=== PATIENT | female | born 1950 | race Caucasian/White ===

== ENCOUNTER 2020-07-10 10:53 | Outpatient (CLI) | payer MEDICARE, OTHER, SELFPAY ==
--- NOTE | ~2020-07-10 | XR_ITS ---
XR sacrum coccyx min 2V DATE: 07/10/2020 11:20 INDICATION: Fall one week ago. Tailbone pain. TECHNIQUE: AP, angled AP and lateral views of sacrum and coccyx COMPARISON: None FINDINGS: Diffuse osteopenia. No sacral or coccygeal fracture is evident. Normal alignment at the sac roiliac joints. Pessary device is noted. Osteitis pubis. IMPRESSION: Osteopenia; no sacral or coccygeal fracture is detected Reviewed, dictated and finalized at location A. N CONDUCTOR
--- NOTE | ~2020-07-10 | XR_ITS ---
XR hip RT min 2V DATE: 07/10/2020 11:20 INDICATION: Fall one week ago. Right hip and tailbone pain. TECHNIQUE: AP and lateral views of right hip COMPARISON: 03/02/2020 right hip FINDINGS: 3 pins are again noted in the proximal right femur. No recent fracture or dislocation or bone destruction of the right hip. No hip dislocation. Osteopenia. IMPRESSION: Postoperative change of right proximal femur; no recent fracture or dislocation Reviewed, dictated and finalized at location A. ENTIALS SPECIALIST
== END 2020-07-10 10:54 | disposition home or self-care (01) ==
LOC: CHSIMG 10:57
PROVIDERS: PCP Nurse Practitioner Family; Visit Provider Nurse Practitioner Family
DX: M54.9 Dorsalgia, unspecified (principal); M25.551 Pain in right hip
CPT/HCPCS: 72220; 73502

== ENCOUNTER 2021-08-07 09:38 | Outpatient (CLI) | payer MEDICARE, OTHER, SELFPAY ==
--- NOTE | 2021-08-07 10:48 | ECG_ITS ---
Measurements Intervals Ferdinand Rate: 74 P: 28 VT: 171 QRS: -23 QRSD: 88 T: 36 QT: 355 QTc: 396 Interpretive Statements SINUS RHYTHM WITH OCCASIONAL ECTOPIC PREMATURE COMPLEXES LEFTWARD AXIS LOW QRS VOLTAGE IN PRECORDIAL LEADS PATTERN CONSISTENT WITH PULMONARY DISEASE NONSPECIFIC T-WAVE ABNORMALITY Electronically Signed On 08-07-2021 12:28:51 MACHINE SETTER SUPERVISOR by Palomo Cano M.D.
[2021-08-07 11:10] LABS: Basophils Absolute Auto 0.1 K/mm3 (0.0-0.1); Basophils Percent Auto 0.8 % (0.2-1.2); Eosinophils Absolute Auto 0.2 K/mm3 (0-0.3); Hematocrit 50.1 % (37.0-47.0); Immature Granulocyte Absolute 0.01 K/mm3 (0.00-0.031); Immature Granulocyte Percent A 0.2 % (0-0.5); Lymphocytes Percent Auto 34.5 % (18.3-44.2); Mean Corpuscular HGB Conc 31.9 g/dl (32-36); Mean Corpuscular Hemoglobin 31.3 pg (26-34); Mean Corpuscular Volume 97.9 fl (80-100); Mean Platelet Volume 10.7 fl (7.4-10.4); Monocytes Absolute Auto 0.5 K/mm3 (0.1-0.6); Monocytes Percent Auto 7.8 % (2.6-8.5); Neutrophils Absolute Auto 3.6 K/mm3 (1.3-6.7); Neutrophils Percent Auto 53.7 % (45.5-73.1); Platelet Count Result 238 k/mm3 (150-375); Red Blood Count 5.12 M/mm3 (4.2-5.4); White Blood Count 6.7 K/mm3 (4.5-10.0)
[2021-08-07 11:18] LABS: Partial Thromboplastin Time 28.1 SECONDS (22.3-36.8); Prothrombin Time 12.8 Seconds (11.1-14.7)
[2021-08-07 11:20] LABS: Alanine Aminotransferase 59 U/L (4-35); Albumin Level 5.1 g/dL (3.5-5.1); Alkaline Phosphatase 56 U/L (38-126); Anion Gap 9 mmol/L (8-16); Aspartate Amino Transferase 48 U/L (14-36); Bilirubin,Total 0.9 mg/dL (0.2-1.3); Blood Urea Nitrogen 15 mg/dL (7-17); Calcium 9.4 mg/dL (8.4-10.2); Carbon Dioxide 27 mmol/L (22-30); Chloride 104 mmol/L (98-107); Estimated Glomerular Filt Rate > 60; Glucose 102 mg/dL (65-110); Potassium 4.2 mmol/L (3.4-5.0); Sodium 140 mmol/L (137-145)
== END 2021-08-07 09:39 | disposition home or self-care (01) ==
LOC: ANHSURGERY 09:45
PROVIDERS: PCP Nurse Practitioner Family; Visit Provider Urology
DX: N81.4 Uterovaginal prolapse, unspecified (principal); I10 Essential (primary) hypertension; Z01.818 Encounter for other preprocedural examination; R94.31 Abnormal electrocardiogram [ECG] [EKG]
CPT/HCPCS: 36415; 80053; 85025; 85610; 85730; 86850; 86900; 86901; 87086; 93005

== ENCOUNTER → 2021-08-17 02:49 | Outpatient (CLI) | payer MEDICARE, OTHER, SELFPAY ==
[2021-08-17 12:15] LABS: SARS-CoV-2 RNA PCR Negative
== END ==
PROVIDERS: PCP Nurse Practitioner Family; Visit Provider Urology
DX: Z01.812 Encounter for preprocedural laboratory examination (principal); Z20.822 Contact with and (suspected) exposure to COVID-19
CPT/HCPCS: C9803; U0003; U0005

== ENCOUNTER 2021-08-20 00:09 | Day surgery (SDC) | payer MEDICARE, SELFPAY ==
--- NOTE | 2021-08-07 10:06 | PC.NURSE ---
Report to the Outpatient Waiting Room, entrance under the green pavilion located off [facility], at time _0600_ on date _08/20/21_. OR Time: _0730_. - You and your visitor will be asked a series of questions to screen for COVID 19 for your protection. - A mask is required within the hospital. One visitor will be allowed to accompany the patient into the hospital. Patients visitor will be instructed to remain with patient at all times or leave the building. We will allow the visitor to come back to the postoperative area when patient is ready. Preoperative COVID Testing Requirements: COVID TEST SCHEDULED FOR 08/17/21 @ 0930 COVID test must be conducted within 72 hours of surgery and patient is asked to isolate self from time of testing until procedure. You will go to the [facility] Testing Site for your COVID testing. The [facility] Testing site is located at the corner of [address] [facility]. You will only be called if COVID results are positive and your surgeon may reschedule your elective surgery date. Patients may have clear liquids (water, carbonated beverages, clear teas, apple juice) until 3 hours prior to surgery (0430 AM) with a maximum of 20 ounces. Take the following medications with a SIP of water the morning of surgery: _LORAZEPAM IF NEEDED__ Medications to discontinue per physician __NONE__ Please no make-up, nail ethiopian, hairspray, perfume, deodorant, or body powder the day of surgery. No jewelry (including any body piercings) or valuables the day of surgery, leave them at home. Please take a shower or bath the night before, or the morning of, surgery with an antibacterial soap. Wear comfortable, loose fitting clothing. - Jewelry must be removed prior to entering the operating room. Rings and piercings that are not removed may be cut off. - The hospital will not accept responsibility for valuables. - Please leave all valuables, including medications, at home the day of surgery. If you are going home after surgery, a licensed powder truck driver must drive you home. - NO public transportation without another adult. - We recommend that an adult stay with you for 24 hours following discharge. - We also recommend that you do not drive, make important decision, drink alcoholic beverages, or take any drugs that were not prescribed by your health care provider for at least 24 hours after your discharge time. Follow any additional instructions given to you from your surgeon. Instructions given to ___PT and asked if any additional questions and then verbalized understanding. Patient advised to call surgeon office or pre surgery nurse liaCHYNA forbes [phone] if any additional questions.
[2021-08-07 10:25] VITALS: BP 172/96; PULSE 68; RESP 18; TEMP 37.1; O2SAT 94; BMI 35.2
--- NOTE | 2021-08-07 10:30 | PC.NURSE ---
Report to the Outpatient Waiting Room, entrance under the green pavilion located off [facility], at time _0600_ on date _08/20/21_. OR Time: _0730__. - You and your visitor will be asked a series of questions to screen for COVID 19 for your protection. - A mask is required within the hospital. One visitor will be allowed to accompany the patient into the hospital. Patients visitor will be instructed to remain with patient at all times or leave the building. We will allow the visitor to come back to the postoperative area when patient is ready. Preoperative COVID Testing Requirements: COVID TEST SCHEDULED FOR 08/17/21 @ 0930 COVID test must be conducted within 72 hours of surgery and patient is asked to isolate self from time of testing until procedure. You will go to the [facility] Testing Site for your COVID testing. The [facility] Testing site is located at the corner of [address] [facility]. You will only be called if COVID results are positive and your surgeon may reschedule your elective surgery date. Patients may have clear liquids (water, carbonated beverages, clear teas, apple juice) until 3 hours prior to surgery (0430 AM) with a maximum of 20 ounces. - No food from midnight until time of surgery Take the following medications with a SIP of water the morning of surgery: __LORAZEPAM IF NEEDED__ Medications to discontinue per physician __NONE_ Please no make-up, nail frisian, hairspray, perfume, deodorant, or body powder the day of surgery. No jewelry (including any body piercings) or valuables the day of surgery, leave them at home. Please take a shower or bath the night before, or the morning of, surgery with an antibacterial soap. Wear comfortable, loose fitting clothing. - Jewelry must be removed prior to entering the operating room. Rings and piercings that are not removed may be cut off. - The hospital will not accept responsibility for valuables. - Please leave all valuables, including medications, at home the day of surgery. If you are going home after surgery, a licensed hazmat cdl a driver must drive you home. - NO public transportation without another adult. - We recommend that an adult stay with you for 24 hours following discharge. - We also recommend that you do not drive, make important decision, drink alcoholic beverages, or take any drugs that were not prescribed by your health care provider for at least 24 hours after your discharge time. Follow any additional instructions given to you from your surgeon. Instructions given to and asked if any additional questions and then verbalized understanding. Patient advised to call surgeon office or pre surgery nurse liaCHYNA forbes [phone] if any additional questions.
--- NOTE | 2021-08-12 17:12 | PM.IMHP ---
H&P: HPI History of Present Illness Date/Time: 08/12/21 17:12 Uterine prolpase/JASBIR Chief Complaint: POP/JASBIR Review of Systems Review of Systems: All systems reviewed & are unremarkable except as noted in HPI and below PMFSH Family History Family History Mother Family history of diabetes mellitus in first degree relative Grandparent Diabetes mellitus Social History Social History Smoking status: Never smoker Second hand tobacco smoke exposure: No Alcohol intake: never Substance use: never Substance use type: does not use Spiritual care concerns: No Meds Home Medications and Allergies Home Medications Medication Instructions Recorded Confirmed Type lorazepam 0.5 mg tablet 0.5 mg PO DAILY PRN #20 tablet 07/10/20 08/07/21 Rx lisinopril 10 mg PO QAM 08/07/21 08/07/21 History Allergies Allergy/AdvReac Type Severity Reaction Status Date / Time escitalopram Allergy Severe Confusion Verified 08/07/21 10:23 lidocaine Allergy Intermediate Agitated Verified 08/07/21 10:23 epinephrine Allergy Unknown Agitated Verified 08/07/21 10:23 Exam Narrative: apex at +6 urethral mobility Assessment and Plan Assessment and plan (1) Uterine prolapse: Code(s): N81.4 - Uterovaginal prolapse, unspecified Status: Acute Assessment and Plan: robotic colpopexy (2) JASBIR (stress urinary incontinence, female): Code(s): N39.3 - Stress incontinence (female) (male) Status: Acute Assessment and Plan: urethral sling
--- NOTE | 2021-08-17 07:26 | P.HP_ITS ---
H&P: HPI History of Present Illness Date/Time: 08/17/21 07:26 71-year-old admitted for robotic supracervical hysterectomy bilateral salpingo- oophorectomy secondary to uterine prolapse. Attempted to removed for pessary in the office however she could not tolerate that and thus I do not have a Pap smear result. She is however low risk and has never had an abnormal and is not sexually active. Risks and benefits of the procedure reviewed in full detail Chief Complaint: uterine prolapse Review of Systems Review of Systems: All systems reviewed & are unremarkable except as noted in HPI and below PMFSH Family History Family History Mother Family history of diabetes mellitus in first degree relative Grandparent Diabetes mellitus Social History Social History Smoking status: Never smoker Second hand tobacco smoke exposure: No Alcohol intake: never Substance use: never Substance use type: does not use Spiritual care concerns: No Meds Home Medications and Allergies Home Medications Medication Instructions Recorded Confirmed Type lorazepam 0.5 mg tablet 0.5 mg PO DAILY PRN #20 tablet 07/10/20 08/07/21 Rx lisinopril 10 mg PO QAM 08/07/21 08/07/21 History Allergies Allergy/AdvReac Type Severity Reaction Status Date / Time escitalopram Allergy Severe Confusion Verified 08/07/21 10:23 lidocaine Allergy Intermediate Agitated Verified 08/07/21 10:23 epinephrine Allergy Unknown Agitated Verified 08/07/21 10:23 Exam Const: General: no acute distress Eyes: General: appearance normal, both eyes and all related structures Neck: Neck: supple and no JVD Thyroid: thyroid normal Resp: Effort & Inspection: normal respiratory effort Auscultation: clear to auscultation bilaterally Cardio: Rate: regular rate Rhythm: regular rhythm GI: Inspection: non-distended GI Palp: Yes Soft to palpation, No Tenderness to palpation present (GI) and No Guarding due to palpation present (GI) Auscultation: normal bowel sounds : External Female Exam: normal external appearance Speculum Exam - Cervix: normal appearance of the cervix ( unable to perform Pap smear and pelvic exam secondary to pessary present) Skin: General skin exam: no rashes or lesions noted Extrem: General: normal to inspection and no edema Psych: Mental Status: mental status grossly normal Affect: normal affect Assessment and Plan Additional Plan impression: Uterine prolapse Plan: Robotic supracervical hysterectomy and bilateral salpingo-oophorectomy. Dr. Fish will proceed with robotic sacral colpopexy
[2021-08-20] VITALS (11 sets, daily range): BP systolic 98–169; BP diastolic 48–95; PULSE 60–77; RESP 12–20; TEMP 36.2–37; O2SAT 94–99; BMI 35.2
--- NOTE | 2021-08-20 07:04 | P.PNAN_ITS ---
Anes - Initial Pre Proc Eval Procedure: Operation Date: 08/20/21 07:30 Proposed Procedures p Robotic Sacrocolpopexy - Vinod Fish MD s Urethral Sling - Vinod Fish MD s Robotic Assisted Supracervical Hysterectomy, Bilateral Salpingo-oophorectomy - Zach Moreland MD Date/Time: 08/20/21 07:04 Surgeon: Vinod Fish MD Pre Op Diagnosis: complete uterine proplapse, stress incontinence Patient Data Age: 71 Gender: F Height: 1.73 m Weight: 105.2 kg Last Vital Signs Temp 37.1 C 08/07/21 10:25 Pulse 68 08/07/21 10:25 Resp 18 08/07/21 10:25 BP 172/96 H 08/07/21 10:25 Pulse Ox 94 08/07/21 10:25 Allergies Allergy/AdvReac Type Severity Reaction Status Date / Time escitalopram Allergy Severe Confusion Verified 08/20/21 06:25 lidocaine Allergy Intermediate Agitated Verified 08/20/21 06:25 epinephrine Allergy Unknown Agitated Verified 08/20/21 06:25 Home Medications Medication Instructions Recorded Confirmed Type lorazepam 0.5 mg tablet 0.5 mg PO DAILY PRN #20 tablet 07/10/20 08/20/21 Rx lisinopril 10 mg PO QAM 08/07/21 08/20/21 History Patient hx anesthesia problems: none Family hx anesthesia problems: none Results Review: All pre-operative results and documents have been reviewed as part of the pre-operative evaluation. FOR[facility]LY [facility] Past Medical History Medical History (Updated 08/20/21 @ 07:09 by Boone Mercer MD) Anxiety Chronic GERD HTN (hypertension) Obesity Uterine prolapse Family History Family History Mother Family history of diabetes mellitus in first degree relative Grandparent Diabetes mellitus Social History Social History Smoking status: Never smoker Second hand tobacco smoke exposure: No Alcohol intake: never Substance use: never Substance use type: does not use Living arrangements: alone Spiritual care concerns: No Anes - Eval Final PreProcedure Day of Procedure 08/20/21 07:04 Patient weight: obese Heart: regular rate and rhythm Lungs: clear to auscultation and normal air movement Airway: Mallampati scale class II Neurological: alert and oriented Last oral intake: >/= 8 hours ASA classification: III Emergent: no Anesthetic plan: proceed Anesthesia type and monitoring: general ETT Results Review: All pre-operative results and documents have been reviewed as part of the pre-operative evaluation. Informed Consent: The patient's anesthetic plan and its attendant risks and benefits were discussed with the patient/family/POA. Questions were solicited and answers provided to the satisfaction of the patient/family/POA.
[2021-08-20] MEDS: LACTATED RINGERS 1,000 ML 30 ML IV CONT ×3 (07:12→11:40)
[2021-08-20] MEDS: KETOROLAC 15 MG/ML VIAL (*BKC) IV PUSH ×2 (07:13→16:59)
[2021-08-20] MEDS: ACETAMINOPHEN 500 MG TABLET 1000 MG PO (07:13)
--- NOTE | 2021-08-20 07:14 | WPDHPUPDATE1 ---
History and Physical Update Update Date/Time: 08/20/21 07:14 History and Physical has been reviewed, including an updated exam of the patient. There are NO changes in the patient's condition. Risks, benefits, and alternatives have been discussed and questions answered. Patient agrees to proceed with procedure.
--- NOTE | 2021-08-20 07:31 | WPDHPUPDATE1 ---
History and Physical Update Update Date/Time: 08/20/21 07:31 History and Physical has been reviewed, including an updated exam of the patient. There are NO changes in the patient's condition. Risks, benefits, and alternatives have been discussed and questions answered. Patient agrees to proceed with procedure.
[2021-08-20] MEDS: ceFAZolin 2 GM/D5W 50 ML 2 GM/50 ML BAG IVPB (07:36)
[2021-08-20] MEDS: metroNIDAZOLE 500 MG/ISO 100ML 500 MG/100 ML BAG 100 MG IVPB ×2 (07:46→17:43)
[2021-08-20] MEDS: BUPIVACAINE/EPINEPHRINE 0.25% 10 ML VIAL 20 ML INFILTRATE (08:17)
--- NOTE | 2021-08-20 08:28 | W.PM.PROC2 ---
Procedure Note - Detailed Date of Procedure 08/20/21 Pre-op Diagnosis complete uterine proplapse, stress incontinence Post-op Diagnosis Same Procedure Performed Robotic supracervical hysterectomy and bilateral salpingo-oophorectomy Surgeon Zach Moreland MD Anesthesia General Indications this 71-year-old female with complete uterine prolapse Findings small uterus. Normal-appearing ovaries and tubes. Complete prolapse Description of Procedure the patient is prepped draped in the normal sterile fashion placed in the dorsal lithotomy position. Under excellent general trach anesthesia weighted speculum placed in posterior fornix vagina. Anterior lip of the cervix grasped with single-tooth tenaculum and the Barnett's cannula inserted attached to the single-tooth. These were used later for uterine manipulation. A 16 Nepali catheter was placed in the bladder and speculum was removed. Dr. wan proceeded from there to dock the robot. Please see his operative report for full details. Once the robot had been docked attention was turned to the procedure. The left round ligament was grasped, burned, cut. Anteriorly a bladder flap was formed by sharply dissecting the peritoneum and reflecting of the caudally away from the uterus and cervix to the opposite round ligament which was clamped, burned, cut. Next the left infundibulopelvic structure was skeletonized. This was serially clamped, burned, cut and brought to the level of previously cut round ligament. Next the right infundibulopelvic structure was skeletonized remove the right adnexa. This was clamped, burned, cut and brought to the level of previously cut round ligament. Next the cardinal broad ligaments on the left were serially skeletonized by hugging the cervix uterus clamping burning and cutting into the uterine vessels could be seen on the left. These were serially clamped, burned, cut. In like fashion the cardinal and broad ligaments on the right were serially skeletonized. These were clamped, burned, cut and brought down the lateral edge to the uterine vessels on the right. These were individually clamped, burned, cut. He hemostasis was assured and blanching of the uterus was noted a supracervical incision was then made. The uterus ovary and tubes were placed in Endo-Catch. Dr. wan proceed from there. Blood loss at that point was [id number]. There were no immediate complications up to this point Estimated Blood Loss 5 Drains No Packing No Pathology Yes Complications No immediate complications Condition Stable Disposition No change
--- NOTE | 2021-08-20 10:41 | W.PM.PROC2 ---
Procedure Note - Detailed Date of Procedure 08/20/21 Pre-op Diagnosis complete uterine proplapse, stress incontinence Post-op Diagnosis Same Procedure Performed Robotic assisted laparoscopic sacral colpopexy Urethral sling Cystoscopy Surgeon Vinod Fish MD Anesthesia General Indications A woman with uterine prolapse as well as stress incontinence. She has been wearing a pessary for several years. It is very difficult to remove. She desires surgical correction. She is here for the above. She understands risks of bleeding, infection, diskitis, damage to surrounding organs, bowel injury, bowel obstruction, mesh related complications including exposure and extrusion, postoperative voiding dysfunction including incontinence and retention, need for ancillary procedures, dyspareunia, recurrence of prolapse, and other perioperative intraoperative postoperative complications. She agrees to proceed. Findings See below Description of Procedure She was correctly identified. Informed consent obtained. She from the operating room. She was given general anesthesia. The pessary was able be removed by her full stack software developer preoperatively. It was removed when she was under anesthesia. She was given appropriate perioperative antibiotics. She was placed a low lithotomy position. Pressure points were padded. A time-out performed. I marked out the skin 3 fingerbreadths cephalad to the umbilicus. I anesthetized the skin. I incised the skin. I dissected down to the fascia. I grasped the fascia with Thalia clamps. I entered the fascia sharply in a Montemayor type technique. I placed sutures for later fascial closure. I placed a midline trocar. I examined the abdomen. There is no sign of any injury. Under direct vision I placed 2 additional trocars in the right upper quadrant and 2 additional trocars the left upper quadrant. She was placed in steep Trendelenburg. The robot was docked. Her full stack software developer completed their portion of the procedure. Please see that operative report for details. I then sat at the console. The Sizer in the vagina created plane on the anterior and posterior vaginal wall. I took great care not to injure the vagina, bladder, or rectum. I introduced the mesh into the abdomen. I sewed the anterior leaflet of mesh on the anterior vaginal wall. I sewed the posterior leaflet of mesh on the posterior vaginal wall. This was done with several sutures of 2 0 [place]. I reflected the colon laterally. I opened the posterior peritoneum over the sacral promontory. I carried this into the cul-de-sac. I freed up the edges for later retroperitonealization. I located the anterior longitudinal ligament the sacrum. I cleaned off all fatty tissues. I then tensioned my mesh appropriately. I did a vaginal exam the bedside. I assured prolapse reduction without undue tension. I then sewed the proximal leaflet of mesh onto the anterior longitudinal ligament of the sacrum with several sutures of 2 0 [place]. I then used a 2 0 Monocryl to completely and meticulously retroperitonealized all mesh. I allowed the colon to go back to its normal anatomic location. There is no sign of any impingement. The specimen was then removed. All ports removed. Fascia was tied down. Skin was closed with Monocryl and surgical glue. She was repositioned and prepped for urethral sling. I marked out the inner thigh incisions. I anesthetized the skin and made the incisions. I then anesthetized the anterior vaginal wall at the mid urethra. I made a 1 cm incision. I dissected out laterally taking great care not to injure the refilled vaginal wall. I passed the helical trocars. I did this 1st on the left and then on the right. This was done from the thigh incision towards the vaginal incision. Sling was connected to the trocars and brought out the thigh incision. I tensioned the sling appropriately. I cut and the plastic sheaths. I closed the incision with 2 0
[2021-08-20] MEDS: fentaNYL CITRATE INJ (*CRX) 100 MCG/2 ML VIAL 25 MCG IV PUSH ×4 (10:53→11:14)
[2021-08-20] MEDS: ONDANSETRON INJ 4 MG/2 ML VIAL IV PUSH (11:40)
[2021-08-20] MEDS: KCL 20 MEQ/D5/0.45% SOD CHL 1,000 ML 100 ML IV CONT ×2 (12:16→22:41)
[2021-08-20] MEDS: lisinopriL 10 MG TABLET PO (12:16)
--- NOTE | 2021-08-20 12:34 | OBPPTRN ---
1155 Patient transferred to post room #281 via Bed. Support person present. Oriented to unit, room, information board, rooming in, admission packet and security measures. Patient verbalizes understanding.
[2021-08-20] MEDS: HYDROcodone/acetaminophen (*CRX) 5-325 MG TABLET 1 TAB PO (19:20)
[2021-08-21] VITALS: BP 125/64; PULSE 62; RESP 16; TEMP 36.9; O2SAT 95
[2021-08-21] MEDS: HYDROcodone/acetaminophen (*CRX) 5-325 MG TABLET 1 TAB PO ×3 (00:18→08:26)
[2021-08-21] MEDS: metroNIDAZOLE 500 MG/ISO 100ML 500 MG/100 ML BAG 100 MG IVPB ×2 (01:02→09:05)
[2021-08-21 04:35] VITALS: BP 100/43; PULSE 56; RESP 16; TEMP 36.9; O2SAT 95
[2021-08-21 04:36] VITALS: PULSE 56; RESP 16; O2SAT 95
--- NOTE | 2021-08-21 07:39 | PM.GYNPNOP ---
TOOTH POLISHER - A/P Postoperative Procedures: Procedures Operation Date: 08/20/21 07:30 Actual Procedure Side Surgeon p Robotic Sacrocolpopexy Vinod Fish MD s Urethral Sling Vinod Fish MD s Robotic Assisted Supracervical Hysterectomy, Bilateral Salpingo-oophorectomy Bilateral Zach Moreland MD Time Spent With Patient Time: Total time spent is greater than 50% in coordination of care (as documented) at patient's floor/unit and/or counseling patient: Time with patient: less than 15 minutes TOOTH POLISHER- PN:Subj Post-Op Subjective Date/time seen: 08/21/21 07:39 Subjective: patient reports feeling better, patient has no complaints and patient desires discharge Review of Systems Review of Systems: All systems reviewed & are unremarkable except as noted in HPI and below Exam Const: General: no acute distress Eyes: General: appearance normal, both eyes and all related structures Neck: Neck: supple and no JVD Thyroid: thyroid normal Resp: Effort & Inspection: normal respiratory effort Auscultation: clear to auscultation bilaterally Cardio: Rate: regular rate Rhythm: regular rhythm GI: Inspection: non-distended GI Palp: Yes Soft to palpation, No Tenderness to palpation present (GI) and No Guarding due to palpation present (GI) Auscultation: normal bowel sounds : General: Yes bladder normal to palpation External Female Exam: normal external appearance Speculum Exam - Vagina: normal vaginal discharge and No vaginal bleeding Speculum Exam - Cervix: nontender Bimanual exam- vagina & uterus: bladder normal to palpation and No Cervical tenderness present OB/external & speculum: No vaginal bleeding Skin: General skin exam: no rashes or lesions noted Extrem: General: normal to inspection and no edema Psych: Mental Status: mental status grossly normal Affect: normal affect TOOTH POLISHER - PN: Obj Data Vital Signs Vital Signs: Vital Signs - 24 hr 08/20/21 10:35 08/20/21 10:50 08/20/21 11:05 Temperature 97.2 F L Pulse Rate 62 63 75 Respiratory Rate 12 12 12 Blood Pressure 137/60 111/67 123/68 Pulse Oximetry 96 99 98 08/20/21 11:20 08/20/21 11:35 08/20/21 11:50 Temperature Pulse Rate 77 71 69 Respiratory Rate 16 16 18 Blood Pressure 98/75 L 116/69 109/95 H Pulse Oximetry 98 97 94 08/20/21 11:55 08/20/21 12:00 08/20/21 17:05 Temperature 97.6 F 97.6 F Pulse Rate 69 60 Respiratory Rate 16 16 Blood Pressure 140/62 137/66 Pulse Oximetry 94 97 95 08/20/21 19:00 08/21/21 00:00 08/21/21 04:35 Temperature 97.7 F 98.4 F 98.4 F Pulse Rate 60 62 56 L Respiratory Rate 16 16 16 Blood Pressure 119/48 L 125/64 100/43 L Pulse Oximetry 96 95 95 08/21/21 04:36 Temperature Pulse Rate 56 L Respiratory Rate 16 Blood Pressure Pulse Oximetry 95 Intake/Output Intake/Output: Intake & Output 08/18/21 08/19/21 08/20/21 08/21/21 22:59 23:59 23:59 23:59 Intake Total 3820 240 Output Total 550 3100 Balance 3270 -2860 Meds/Results Medications: Active Medications Generic Name Dose Route Start Last Admin Trade Name Freq PRN Reason Stop Dose Admin Acetaminophen 650 mg 08/20/21 11:51 Acetaminophen 325 Mg Tablet PO Q4H PRN Mild Pain (1-3) or Fever Hydrocodone Bitart/Acetaminophen 1 tab 08/20/21 11:51 08/21/21 04:32 Hydrocodone/Acetaminophen (*Crx) 5-325 Mg Tablet PO 1 tab Q4H PRN Administration Pain Rated 4-5 Cephalexin HCl 500 mg 08/21/21 12:00 Cephalexin 500 Mg Capsule PO Q6HR MARY Diphenhydramine HCl 25 mg 08/20/21 11:51 Diphenhydramine Hcl Inj 50 Mg/Ml Vial IV PUSH Q6H PRN Itching Docusate Sodium 100 mg 08/20/21 11:51 08/20/21 11:55 Docusate Sodium 100 Mg Capsule PO Not Given DAILY MARY Enoxaparin Sodium 30 mg 08/21/21 09:00 Enoxaparin 30 Mg/0.3 Ml Syringe SUB-Q DAILY MARY Potassium Chloride/Dextrose/Sod Cl 1,000 mls @ 100 mls/hr 08/20/21 11:51 08/20/21 22:41 Kcl 20 Meq/D5/0.45% Sod Chl
--- NOTE | 2021-08-21 07:41 | PM.DS ---
DS: Admitting Diagnosis Discharge Date 08/21/21 Admitting Diagnosis Uterine prolapse stress urinary incontinence DS: Summary Hospital Course Hospital Course: Patient underwent supracervical hysterectomy bilateral salpingo-oophorectomy sling and sacral colpopexy via robot. Her hospital course was unremarkable. She remained afebrile. She was up, voiding without difficulty, ambulating and generally without complaints. Time Spent with Patient Time attestation: Total time spent providing and/or coordinating discharge services: Exam Const: General: no acute distress Eyes: General: appearance normal, both eyes and all related structures Neck: Neck: supple and no JVD Thyroid: thyroid normal Resp: Effort & Inspection: normal respiratory effort Auscultation: clear to auscultation bilaterally Cardio: Rate: regular rate Rhythm: regular rhythm GI: Inspection: non-distended GI Palp: Yes Soft to palpation, No Tenderness to palpation present (GI) and No Guarding due to palpation present (GI) Auscultation: normal bowel sounds : General: Yes bladder normal to palpation External Female Exam: normal external appearance Speculum Exam - Vagina: normal vaginal discharge and No vaginal bleeding Speculum Exam - Cervix: nontender Bimanual exam- vagina & uterus: bladder normal to palpation and No Cervical tenderness present OB/external & speculum: No vaginal bleeding Skin: General skin exam: no rashes or lesions noted Extrem: General: normal to inspection and no edema Psych: Mental Status: mental status grossly normal Affect: normal affect DS: Data Data Completed and Pending Pending studies at discharge: Pending at discharge 08/20/21 08:22 Surgical [PTH] Routine Discharge Plan Discharge Patient Disposition: Home, Self-Care Stand Alone Forms: General Discharge Instructions Follow-up/Referrals: Zach Moreland MD [Physician] - Discharge Medications: New hydrocodone-acetaminophen 5-325 mg tablet 1 tablet PO Q6H PRN (Reason: pain) Qty: 20 RF: 0 docusate sodium [Colace] 100 mg capsule 100 mg PO BID Qty: 60 RF: 0 Continued lorazepam 0.5 mg tablet 0.5 mg PO DAILY PRN (Reason: anxiety) Qty: 20 RF: 0 lisinopril 10 mg tablet 10 mg PO QAM RF: 0
[2021-08-21 08:15] VITALS: BP 117/58; PULSE 52; RESP 18; TEMP 36.4; O2SAT 97
[2021-08-21] MEDS: lisinopriL 10 MG TABLET PO (08:26)
[2021-08-21] MEDS: DOCUSATE SODIUM 100 MG CAPSULE PO (08:26)
[2021-08-21] MEDS: ENOXAPARIN 30 MG/0.3 ML SYRINGE SUB-Q (08:27)
--- NOTE | 2021-08-21 10:52 | WPDANESPN ---
Anes - Prog Note Post-Op Date/Time: 08/21/21 10:52 Cardiovascular status: normal Respiratory status: normal Airway patency: baseline Mental status: baseline Post-Op hydration status: normal Vital Signs: Last Vital Signs Temp 36.4 C 08/21/21 08:15 Pulse 52 L 08/21/21 08:15 Resp 18 08/21/21 08:15 BP 117/58 L 08/21/21 08:15 Pulse Ox 97 08/21/21 08:15 Pain Score (VAS): 2/10 I/O: Intake & Output 08/20/21 08/21/21 08/21/21 23:59 07:59 15:59 Intake Total 2070 390 Output Total 550 3100 Balance 1520 -2710 Post-procedural complaints: none Patient Feedback: Patient satisfied with anesthetic care.
== END 2021-08-21 12:15 | disposition home or self-care (01) ==
LOC: ANHSURGERY 08:04 → ANHOB2 11:52
PROVIDERS: Obstetrics & Gynecology; PCP Nurse Practitioner Family; Visit Provider Urology
PROC: (CPT 57425; principal; 2021-08-20 07:30)
PROC: (CPT 57425; 2021-08-20 07:30)
PROC: 0UT94ZZ Resection of Uterus, Percutaneous Endoscopic Approach (ICD-10-PCS; CPT 57425; 2021-08-20 07:30)
DX: N81.3 Complete uterovaginal prolapse (principal); N39.3 Stress incontinence (female) (male); N84.0 Polyp of corpus uteri; N80.0 Endometriosis of uterus; N73.6 Female pelvic peritoneal adhesions (postinfective); I10 Essential (primary) hypertension; F41.9 Anxiety disorder, unspecified; E66.9 Obesity, unspecified; Z68.35 Body mass index [BMI] 35.0-35.9, adult
CPT/HCPCS: 58542; 57425; 57288; S2900 ×2; 88307; 99199; A9270; C1771; C1781; C9290; J0330; J0690; J1100; J1170; J1650; J1885; J2250; J2370; J2405; J2704; J2710; J3010; J3480; J7030; J7120

== ENCOUNTER 2022-09-24 01:03 | Day surgery (SDC) | payer OTHER, SELFPAY ==
--- NOTE | 2022-09-13 15:10 | PC.NURSE ---
Report to the Outpatient Waiting Room, entrance under the green pavilion located off [facility], at time __0600 on date __09/24/22 . Planned Procedure Time: _0730 . Time changes happen often and if your time is changed the preop area will call you the afternoon before. - You and your visitor will be asked to self-screen and do not enter if you have any COVID symptoms. - A mask is optional within the hospital at this time. Patients may have clear liquids (water, carbonated beverages, clear teas, apple juice) until 3 hours prior to surgery with a maximum of 20 ounces. - No food from midnight until time of surgery - Infants may have breast milk until 4 hours before surgery, infant formula 6 hours prior to surgery. - Children will be allowed to drink immediately following surgery. If applicable, please bring a bottle or sippy cup to assist with drinking. Juice, water, soda, and popsicles are readily available. For infants on formula, please bring formula the day of surgery. Pacifiers are allowed. Take the following medications with a SIP of water the morning of surgery: NONE DO NOT STOP ANY OF YOUR OTHER PRESCRIPTION MEDICATIONS PRIOR TO SURGERY ?EXCEPT THE FOLLOWING Medications to discontinue per physician ____ALL VITAMINS/SUPPLEMENTS 3 DAYS PRE OP. LAST DOSE 09/20/22 Please no make-up, nail nicaraguan, hairspray, perfume, deodorant, or body powder the day of surgery. No jewelry (including any body piercings) or valuables the day of surgery, leave them at home. Please take a shower or bath the night before, or the morning of, surgery with an antibacterial soap. Wear comfortable, loose fitting clothing. Children are encouraged to wear pajamas. - Jewelry must be removed prior to entering the operating room. Rings and piercings that are not removed may be cut off. - The hospital will not accept responsibility for valuables. - Please leave all valuables, including medications, at home the day of surgery. If you are going home after surgery, a licensed power screwdriver operator must drive you home. - NO public transportation without another adult if you receive anesthesia. - We recommend that an adult stay with you for 24 hours following discharge. - We also recommend that you do not drive, make important decision, drink alcoholic beverages, or take any drugs that were not prescribed by your health care provider for at least 24 hours after your discharge time. For Pediatric surgeries, we recommend two adults accompany the child home. Follow any additional instructions given to you from your surgeon. If you or anyone in your household have experienced Covid symptoms in the past week, please notify your surgeon or the nurse liaison at the phone number below for possible testing. Telephone instructions given to ___PATIENT and asked if any additional questions and then verbalized understanding. Patient advised to call surgeon office or pre surgery nurse liaison [phone] if any additional questions.
[2022-09-13 15:23] VITALS: BMI 30.4
[2022-09-24] VITALS (10 sets, daily range): BP systolic 120–190; BP diastolic 57–86; PULSE 64–92; RESP 14–18; TEMP 36.2–37.1; O2SAT 95–100
[2022-09-24] MEDS: LACTATED RINGERS 1,000 ML 30 ML IV CONT ×2 (06:30→11:27)
--- NOTE | 2022-09-24 06:35 | WPDANESEPPF ---
Anes - Initial Pre Proc Eval Procedure: Operation Date: 09/24/22 07:30 Proposed Procedures p Neck Lift with Liposuction - Romain David MD Date/Time: 09/24/22 06:35 Surgeon: Romain David MD Pre Op Diagnosis: skin laxity,localized adiposity Patient Data Age: 72 Gender: F Height: 1.73 m Weight: 90.75 kg Allergies Allergy/AdvReac Type Severity Reaction Status Date / Time escitalopram Allergy Severe Confusion Verified 09/13/22 14:58 lidocaine Allergy Intermediate Agitated Verified 09/13/22 14:58 epinephrine Allergy Unknown Agitated Verified 09/13/22 14:58 Home Medications Medication Instructions Recorded Confirmed Type lorazepam 0.5 mg tablet 0.5 mg PO DAILY PRN anxiety #20 07/10/20 09/13/22 Rx tabs ascorbic acid (vitamin C) 1,000 mg 1 g PO DAILY 09/13/22 09/13/22 History tablet cholecalciferol (vitamin D3) 125 125 mcg PO DAILY 09/13/22 09/13/22 History mcg (5,000 unit) tablet multivitamin (Daily Multi-Vitamin 1 tablet PO DAILY 09/13/22 09/13/22 History tablet) omega-3 fatty acids 1,000 mg PO DAILY 09/13/22 09/13/22 History turmeric 400 mg capsule 400 mg PO DAILY 09/13/22 09/13/22 History Patient hx anesthesia problems: post op nausea/vomiting Family hx anesthesia problems: none Results Review: All pre-operative results and documents have been reviewed as part of the pre-operative evaluation. [facility] Past Medical History Medical History (Updated 09/24/22 @ 06:49 by Isael Arroyo DO) Anxiety Chronic GERD HTN (hypertension) took self off meds Obesity PONV (postoperative nausea and vomiting) Uterine prolapse Family History Family History Mother Family history of diabetes mellitus in first degree relative Grandparent Diabetes mellitus Social History Social History Smoking status: Never smoker Second hand tobacco smoke exposure: No Alcohol intake: never Substance use: never Substance use type: does not use Living arrangements: alone Spiritual care concerns: No Anes - Eval Final PreProcedure Day of Procedure 09/24/22 06:35 Patient weight: obese Heart: regular rate and rhythm Lungs: clear to auscultation Airway: Mallampati scale class II Neurological: alert and oriented Last oral intake: >/= 8 hours ASA classification: III Emergent: no Anesthetic plan: proceed Anesthesia type and monitoring: general ETT and standard monitoring Results Review: All pre-operative results and documents have been reviewed as part of the pre-operative evaluation. Informed Consent: The patient's anesthetic plan and its attendant risks and benefits were discussed with the patient/family/POA. Questions were solicited and answers provided to the satisfaction of the patient/family/POA.
[2022-09-24] MEDS: FAMOTIDINE 20 MG/2 ML VIAL IV PUSH (07:00)
--- NOTE | 2022-09-24 07:08 | P.OP_ITS ---
Procedure Note - Detailed Date of Procedure 09/24/22 Pre-op Diagnosis skin laxity,localized adiposity Post-op Diagnosis Same Procedure Performed Neck lift (Cervicoplasty) Surgeon Romain David MD Anesthesia General Description of Procedure Preoperatively the risks, benefits, alternatives were discussed in extensive detail. I want her to be very realistic about the risks involved as well as expectations. Reviewed what we can and cannot accomplish. Realistic expectations of outcome. All questions were answered to satisfaction. Consent obtained. Taken to the operating room placed supine on the operating room table. Anesthesia provided by anesthesiology. Prepped and draped in standard sterile f ashion. Surgical time-out was taken. Local anesthesia was provided with a tumescent solution using lidocaine, epinephrine, and TXA. Once adequate time for effect a fifteen blade used to make a submental incision. Dissection was continued down identified platysma muscle. Elevated skin flaps with good adiposity of the deep surface throughout the neck. I then went sub platysmal and elevated bilateral. Small volume subplatysmal (pre-digastric) adipose was taken. She had prominent digastrics which were shaved superficially bilateral. No submandibular gland resection. Platysma muscle was secured at the level of the hyoid with a 2-0 PDS. I completed platysmal transection at the midline at the level of the hyoid and repaired the platysma inferior with running 2-0 PDS. The submental platysma was repaired with 2-0 PDS securing to the deep fascia. I then proceeded made the remainder of the incisions. I elevated skin flaps with good adequate adiposity of the deep surface to have good contour. This was continued for all the areas necessary for mobilization. I created a platysmal hammock by elevating the platysma from sternocleidomastoid anterior with care taken to protect deep structure / marginal mandibular nerve. Also transected Platysma transversely just inferior to mandibular border monitoring for marginal mandibular nerve. Platysma was advanced laterally tension free and secured to mastoid fascia with 2-0 PDS Suction lipectomy for 5-10cc was completed for contour submental using a flat two hold cannula . Copious irrigated with saline solution and verified strict hemostasis. I placed a 10 [address] drain sut[address] in place postauricular with this 3-0 Vicryl. The skin flaps were just placed into position without any tension. Trimmed as necessary. Preauricular was closed with 5-0 nylon. Postauricular with 5-0 chromic. I did tristen in the hairline. Submental was closed using 3-0 Monocryl followed by running subcuticular 4-0 Monocryl and tissue glue. Dressings were placed. Patient was awoken without difficulty. All instrument sponge counts were correct at the end of the case. Estimated Blood Loss 20 Drains Yes (10 Haris ) Packing No Pathology None sent Complications No immediate complications Condition Stable Disposition PACU
--- NOTE | 2022-09-24 07:08 | WPDHPUPDATE1 ---
History and Physical Update Update Date/Time: 09/24/22 07:08 History and Physical has been reviewed, including an updated exam of the patient. There are NO changes in the patient's condition. Risks, benefits, and alternatives have been discussed and questions answered. Patient agrees to proceed with procedure.
[2022-09-24] MEDS: ceFAZolin 2 GM/D5W 50 ML 2 GM/50 ML BAG IVPB (07:35)
[2022-09-24] MEDS: TRANEXAMIC ACID 1,000MG/ISO100 1,000 MG/100 ML BAG 200 MG IVPB (07:45)
[2022-09-24] MEDS: SCOPOLAMINE 1.5 MG PATCH TRANSDERM (07:49)
[2022-09-24] MEDS: NEOMYCIN/POLYMYXIN/BACITRACIN OPHTH OINTMENT 3.5 GM TUBE 1 APPLIC EACH EYE (11:19)
[2022-09-24] MEDS: fentaNYL CITRATE INJ (*CRX) 100 MCG/2 ML VIAL 25 MCG IV PUSH ×4 (12:05→12:24)
[2022-09-24] MEDS: ONDANSETRON INJ 4 MG/2 ML VIAL IV PUSH (13:02)
[2022-09-24] MEDS: oxyCODONE HCL (*CRX) 5 MG TAB IR PO (13:18)
== END 2022-09-24 14:25 | disposition home or self-care (01) ==
PROVIDERS: PCP Nurse Practitioner Family; Visit Provider Surgery Plastic and Reconstructive Surgery
PROC: (CPT 15819; principal; 2022-09-24 07:30)
DX: Z41.1 Encounter for cosmetic surgery (principal); L57.4 Cutis laxa senilis; E65 Localized adiposity; F41.9 Anxiety disorder, unspecified; E66.9 Obesity, unspecified; Z68.31 Body mass index [BMI] 31.0-31.9, adult
CPT/HCPCS: 15819; A9270; J0171; J0690; J1100; J2250; J2405; J2704; J3010; J7030; J7120

== ENCOUNTER 2023-05-27 10:32 | Outpatient (NON) | payer MEDICARE, SELFPAY ==
[2023-05-27 10:46] LABS: Appearance Urine Clear (Clear); Bilirubin Urine Negative (Negative); Blood Urine Negative (Negative); Color Urine Light Yellow (Yellow); Glucose Urine UA Negative (Negative); Ketones Urine Negative (Negative); Leukocyte Esterase Ur Negative LEU/UL (Negative); Nitrate Urine Negative (Negative); Protein Urine Negative (Negative); Urobilinogen Urine 0.2 mg/dL (0.2-1.0); pH Urine 5.5 (5.0-8.0)
[2023-05-27 11:07] LABS: Add Urine Microscopic? NO
== END 2023-05-27 10:33 | disposition home or self-care (01) ==
LOC: CHSLAB 10:37
PROVIDERS: Visit Provider Nurse Practitioner Family
DX: Z87.898 Personal history of other specified conditions (principal)
CPT/HCPCS: 81003